=== PATIENT | male | born 1995 | race Caucasian/White ===

== ENCOUNTER 2020-11-10 19:56 | Emergency (ER) | payer MEDICAID ==
[2020-11-11] MEDS ORDERED: IBUP-2213 PO (15:48)
[2020-11-11] MEDS ORDERED: CEPH500C16 PO (15:48)
== END 2020-11-10 20:00 | disposition left against medical advice (07) ==
LOC: MED 19:56
DX: Z48.00 Encounter for change or removal of nonsurgical wound dressing (principal); Z53.21 Procedure and treatment not carried out due to patient leaving prior to being seen by health care provider

== ENCOUNTER 2020-11-11 14:58 | Emergency (ER) | payer MEDICAID ==
[~2020-11-11] VITALS: Ht 165.1 cm; Wt 95.3 kg
[2020-11-11 15:02] VITALS: BP 159/90
--- NOTE | 2020-11-11 15:08 | NUR ---
PATIENT AMBULATED TO ER BED 10
--- NOTE | 2020-11-11 15:35 | NUR ---
PA ABREU AT BEDSIDE EVALUATING PT
[2020-11-11] MEDS ORDERED: CEPH500C16 PO (15:48)
[2020-11-11] MEDS ORDERED: IBUP-2213 PO (15:48)
--- NOTE | 2020-11-11 15:54 | NUR ---
NO NURSING INTERVENTIONS PERFORMED. PT ASSESSED AND DISCHARGED BY JOANNA ABREU
[2020-11-11 15:56] VITALS: BP 159/90
--- NOTE | 2020-11-11 15:56 | NUR ---
Patient discharged with v/s stable. Written and verbal after care instructions given and explained. Patient alert, oriented and verbalized understanding of instructions. Ambulatory with steady gait. All questions addressed prior to discharge. ID band removed. Patient advised to follow up with PMD. Rx of KEFLEX AND MOTRIN given. Patient educated on indication of medication including possible reaction and side effects. Opportunity to ask questions provided and answered.
== END 2020-11-11 15:56 | disposition home or self-care (01) ==
LOC: MED 14:58
DX: S31.119D Laceration without foreign body of abdominal wall, unspecified quadrant without penetration into peritoneal cavity, subsequent encounter (principal); S21.119D Laceration without foreign body of unspecified front wall of thorax without penetration into thoracic cavity, subsequent encounter; Z79.899 Other long term (current) drug therapy; X58.XXXD Exposure to other specified factors, subsequent encounter
CPT/HCPCS: 99283